=== PATIENT | female | born 1970 | race African-American/Black ===

== ENCOUNTER → 2018-06-15 | Outpatient (CLI) | payer OTHER ==
--- NOTE | 2018-06-15 11:56 | Diagnostic Imaging Report ---
EXAM: Bone mineral density study 06/15/2018 8:26 AM INDICATION: \S\DECREASED VITAMIN D COMPARISON: None FINDINGS: Evaluation of the left hip and lumbar spine was performed. The study is technically adequate. The patient's fracture risk is compared to an age-matched control. Left femoral neck bone mineral density: 0.93 g/cm2, T-score is -0.1, Z-score is 0.3. Left hip total bone mineral density: 1.02 g/cm2, T-score is -0.1, Z-score is 0.2. Lumbar spine total bone mineral density: 1.338 gm/cm2, T-score is 1.7, Z-score is 2.5. IMPRESSION: Bone mineralization by WHO Classification is normal, the fracture risk is not increased. Signed by: Dr. Joaquin Kumar MD on 06/15/2018 11:53 AM
== END ==
LOC: DX 08:16
PROVIDERS: ATTEND Specialist
DX: E55.9 Vitamin D deficiency, unspecified (principal)
CPT/HCPCS: 77080

== ENCOUNTER → 2018-06-26 | Outpatient (CLI) | payer OTHER | LOC: MAMMO 08:20 | PROVIDERS: ATTEND Specialist | DX: Z12.31 Encounter for screening mammogram for malignant neoplasm of breast (principal) | CPT/HCPCS: 77067 ==